=== PATIENT | female | born 1995 | race Asian ===

== ENCOUNTER 2025-04-10 12:58 | Emergency (ER) | payer OTHER ==
[~2025-04-10] VITALS: Ht 160 cm; Wt 50.0 kg
[2025-04-10 13:10] VITALS: O2SAT 99
[2025-04-10 14:36] LABS: BASOPHILS % 0.2 % (0.0-2.0); EOSINOPHILS % 1.3 % (0.0-5.0); HEMATOCRIT. 36.7 % (36.0-48.0); HEMOGLOBIN. 12.4 g/dL (12.0-16.0); LYMPHOCYTES % 16.9 % (20.0-50.0); MEAN PLATELET VOLUME 9.3 fl (7.4-10.4); MONOCYTES % 6.3 % (2.0-8.0); NEUTROPHILS % 75.3 % (40.0-76.0); PLATELET 164 x1000/uL (130-400); RED BLOOD CELL COUNT 4.30 mill/uL (4.2-5.4); RED CELL DISTRIBUTION WIDTH 13.0 % (11.6-14.6)
[2025-04-10 14:43] LABS: CLARITY URINE CLEAR (CLEAR); COLOR URINE YELLOW (YELLOW); GLUCOSE URINE NEGATIVE (NEGATIVE); KETONES URINE TRACE (NEGATIVE); LEUKOCYTE ESTERASE URINE TRACE (NEGATIVE); NITRITE URINE NEGATIVE (NEGATIVE); OCCULT BLOOD URINE 2+ (NEGATIVE); PH URINE 7.0 (4.5-8.0); PROTEIN URINE NEGATIVE (NEGATIVE); SPECIFIC GRAVITY URINE 1.021 (1.005-1.030); UROBILINOGEN URINE 0.2 E.U./dL (0.2-1.0)
[2025-04-10 14:53] LABS: CREATININE 0.7 mg/dL (0.6-1.0)
[2025-04-10 14:54] LABS: PROTEIN TOTAL 7.3 g/dL (6.0-8.3); UREA NITROGEN BLOOD 12 mg/dL (9-23)
[2025-04-10 14:55] LABS: ASPARTATE AMINOTRANSFERASE 15 IU/L (<34); BILIRUBIN DIRECT 0.2 mg/dL (<=3.0)
[2025-04-10 14:56] LABS: BILIRUBIN TOTAL 0.6 mg/dL (0.1-1.0)
[2025-04-10 15:13] LABS: HCG SCREEN NEGATIVE
[2025-04-10] MEDS ORDERED: HYDR10TA34 MT (15:38)
[2025-04-10 16:01] VITALS: BP 105/62; PULSE 95; RESP 18; TEMP 36.7; O2SAT 99
[2025-04-10 16:12] LABS: RBC URINE 0-2 /hpf (0-2); WBC URINE 0-2 /hpf (0-2)
[2025-04-10 16:13] LABS: BACTERIA URINE 1+; SQUAMOUS EPITHELIAL CELL URINE 1+ /lpf (RARE/1+)
== END 2025-04-10 16:03 | disposition home or self-care (01) ==
LOC: ER 12:58
DX: F41.9 Anxiety disorder, unspecified (principal); R42 Dizziness and giddiness; Z79.899 Other long term (current) drug therapy
CPT/HCPCS: 36415; 80048; 80076; 81003; 81025; 83735; 84703; 85025; 93005; 99284